=== PATIENT | male | born 1955 | race Caucasian/White ===

== ENCOUNTER 2020-07-24 11:00 | Emergency (ER) | payer OTHER ==
[~2020-07-24] VITALS: Ht 175.3 cm; Wt 100.0 kg
[2020-07-24] MEDS ORDERED: IV NORMAL SALINE 1000ML BAG 1,000 ML IV ONE (11:30)
--- NOTE | 2020-07-24 11:34 | PHYS DOC ---
General Adult EDM: Chief Complaint: MECHANICAL FALL HPI: HPI: Arnie is a 65-year-old white male who presents post fall via [facility]. Patient had an unwitnessed fall, and was found down earlier today. He has no acute complaints or pain. However he was sent here for further evaluation. Patient has a past medical history of diagnosed Alzheimer's dementia this complicated his physical exam and history. Patient was hallucinating about his apparently during interview. Review of Systems: Review of Systems: Constitutional: Denies fever or chills Eyes: Denies redness or eye pain HENT: Denies nasal congestion or sore throat Respiratory: Denies cough or shortness of breath Cardiovascular: Denies chest pain or palpitations GI: Denies abdominal pain, nausea, or vomiting : Denies dysuria or hematuria Musculoskeletal: Denies back pain or joint pain Integument: Denies rash or skin lesions Neurologic: Denies headache, focal weakness or sensory changes Complete systems were reviewed and found to be within normal limits, except as documented in this note. Current Medications: Home meds: Acetaminophen 325 mg x 2 every 4 hours as needed, donepezil 10 mg p.o. daily at night, aspirin 81 mg p.o. daily, amantadine 10 mg twice daily, tra zodone 50 mg p.o. daily at night. Vitamin B complex 1 tablet p.o. daily. Physical Exam: PE: Constitutional: Well developed, well nourished, no acute distress, non-toxic appearance HENT: Normocephalic, atraumatic. Cranial nerves II through XII grossly intact bilaterally. Eyes: PERRL, EOMI, conjunctiva normal, no discharge. Neck: Normal range of motion, no tenderness, supple. Lungs & Thorax: Bilateral breath sounds clear to auscultation, no wheezing Heart: 1+ diastolic murmur best heard at left upper sternal border. Regular rate and rhythm. S1 and S2 heard. S3 and S4 not heard. Abdomen: Soft, no tenderness. Protuberant, full abdomen. Bowel sounds present in all 4 quadrants. No masses palpated. Skin: Warm, dry, no erythema, no rash. 2 large 5 inch x 2 inch bruises on bilateral lower abdomen Of medium age. Back: No tenderness, no CVA tenderness Extremities: No tenderness, ROM intact, no edema 2+4 pulses all 4 extremities. Neurologic: Noted pill-rolling tremor in right upper extremity normal motor function, normal sensory function, no focal deficits noted 2+/4 DTRs all 4 extr emities. Psychologic: Patient appeared to be hallucinating in the room about his . He experienced exceptionally emotional episodes. Patient is not alert or oriented. Apparent dementia. This is reported to be the patient's baseline. EKG: EKG: @1253 NSR at 90bpm, QRS 92ms, QT/QTc 364/449ms Radiology/Procedures: Radiology/Procedures: PROCEDURE: CT HEAD AND CERVICAL SPINE WO CT head without contrast. CT cervical spine without contrast. PQRS statement: CT scans at this facility use dose reduction including either automated exposure control, iterative reconstructions, and /or weight based radiation dosing via mA and kV modification when appropriate to reduce radiation dose to as low as reasonably achievable. HISTORY: Fall, altered mental status, pain. CT head findings: There is motion artifact at the vertex with the patient moving on the table during the exam which excludes imaging a portion of the brain at the vertex as well as of the calvarium and scalp. The imaged portions of the brain demonstrate no intracranial hemorrhage, mass, hydrocephalus or infarction. Mild generalized brain atrophy is present. Imaged orbits, mastoids and bones are unremarkable. IMPRESSION: Extensive motion artifact at the vertex does not allow assessment of a portion of the head and segments of the frontal and parietal lobes at the vertex. The visualized and imaged segments of the head and brain demonstrates no acute abnormality. If there is clinical concern for an acute intracranial injury follow-up imaging when the patient is able to better cooperate or when sedated may be of benefit. CT cervical spine findings: Exam is motion degraded decreasing sensitivity to detect subtle abnormalities including small nondisplaced hairline fractures of the cervical spine. In light of this no fracture of the cervical spine is evident. Craniocervical junction intact. Cervical vertebral body height and alignment intact. Cervical disc osteophytes and uncovertebral spurs and facet spurring with spinal canal and neural foraminal stenoses. Lung apices and paraspinal tissues are unremarkable. IMPRESSION: Motion degraded exam. No acute osseous injury evident. Please see above. Electronically signed by: Casa Harrison MD (07/24/2020 12:55 PM) [id number] PROCEDURE: PORTABLE CHEST 1V PORTABLE CHEST 1V 07/24/2020 11:18 AM INDICATION: Weakness COMPARISON: None available TECHNIQUE: Portable frontal view of the chest is provided. FINDINGS: The cardiomediastinal silhouette is within normal limits. Lungs are clear. There are no significant pleural effusions. There is no pulmonary vascular congestion. No pneumothorax. No suspicious osseous abnormality. IMPRESSION: There is no acute cardiopulmonary process. Electronically signed by: Princess Dacosta MD (07/24/2020 11:47 AM) [facility] Course & Med Decision Making: Course & Med Decision Making 65-year-old white male presents 4 hours post fall, unwitnessed and dementia complicating history collection. Differential diagnoses: Frontotemporal dementia/pick's disease, parkinsonian dementia. Pill-rolling tremor and physical exam are most consistent with a parkinsonian dementia possibly frontotemporal dementia being the source of his hallucinations and personality changes. Will obtain CT head and neck to rule out subdural hematoma. Patient does not appear to have any focal neurological deficits, if CT negative discharge patient home. Nahun Disclaimer: Nahun Disclaimer: This electronic medical record was generated, in whole or in part, using a voice recognition dictation system. Departure Departure Impression: Primary Impression: Fall Qualified Codes: W19.XXXA - Unspecified fall, initial encounter Disposition: 01 HOME, SELF-CARE (back to prison) Condition: STABLE Patient Instructions: Fall Prevention in Hospitals Justicifation of Admission Dx: Justifications for Admission: Justification of Admission Dx: N/A GALILEA BARRY DO Jul 24, 2020 11:34
[2020-07-24 11:41] LABS: BASO # 0.1 x10^3/uL (0.0-0.2); BASO % 1 % (0-3); EOS # 0.1 x10^3/uL (0.0-0.7); EOS % 2 % (0-3); HEMATOCRIT 46.7 % (39.0-53.0); LYMPH % 13 % (24-48); MEAN CORPUSCULAR HEMOGLOBIN 29 pg (25-35); MEAN CORPUSCULAR HGB CONC 34 g/dL (31-37); MEAN CORPUSCULAR VOLUME 84 fL (79-100); MONO % 13 % (0-9); NEUT # 5.7 x10^3/uL (1.8-7.7); NEUT % 72 % (31-73); PLATELET COUNT 219 x10^3/uL (140-400); RED BLOOD COUNT 5.58 x10^6/uL (4.30-5.70); RED CELL DISTRIBUTION WIDTH 13.6 % (11.5-14.5); WHITE BLOOD COUNT 7.9 x10^3/uL (4.0-11.0)
[2020-07-24 11:50] LABS: PROTHROMBIN TIME PATIENT 13.8 SEC (11.7-14.0)
--- NOTE | 2020-07-24 11:50 | RAD ---
PORTABLE CHEST 1V 07/24/2020 11:18 AM INDICATION: Weakness COMPARISON: None available TECHNIQUE: Portable frontal view of the chest is provided. FINDINGS: The cardiomediastinal silhouette is within normal limits. Lungs are clear. There are no significant pleural effusions. There is no pulmonary vascular congestion. No pneumothorax. No suspicious osseous abnormality. IMPRESSION: There is no acute cardiopulmonary process. Electronically signed by: Princess Dacosta MD (07/24/2020 11:47 AM) TIMMY
[2020-07-24 11:54] LABS: CALCIUM 8.9 mg/dL (8.5-10.1); CREATININE 1.2 mg/dL (0.7-1.3)
[2020-07-24 12:00] LABS: ALBUMIN 3.6 g/dL (3.4-5.0); MAGNESIUM 2.4 mg/dL (1.8-2.4); TOTAL BILIRUBIN 0.8 mg/dL (0.2-1.0); TOTAL PROTEIN 7.2 g/dL (6.4-8.2)
[2020-07-24 12:03] LABS: POTASSIUM 3.8 mmol/L (3.5-5.1)
--- NOTE | 2020-07-24 12:57 | RAD ---
CT head without contrast. CT cervical spine without contrast. PQRS statement: CT scans at this facility use dose reduction including either automated exposure control, iterative reconstructions, and /or weight based radiation dosing via mA and kV modification when appropriate to reduce radiation dose to as low as reasonably achievable. HISTORY: Fall, altered mental status, pain. CT head findings: There is motion artifact at the vertex with the patient moving on the table during the exam which excludes imaging a portion of the brain at the vertex as well as of the calvarium and scalp. The imaged portions of the brain demonstrate no intracranial hemorrhage, mass, hydrocephalus or infarction. Mild generalized brain atrophy is present. Imaged orbits, mastoids and bones are unremarkable. IMPRESSION: Extensive motion artifact at the vertex does not allow assessment of a portion of the head and segments of the frontal and parietal lobes at the vertex. The visualized and imaged segments of the head and brain demonstrates no acute abnormality. If there is clinical concern for an acute intracranial injury follow-up imaging when the patient is able to better cooperate or when sedated may be of benefit. CT cervical spine findings: Exam is motion degraded decreasing sensitivity to detect subtle abnormalities including small nondisplaced hairline fractures of the cervical spine. In light of this no fracture of the cervical spine is evident. Craniocervical junction intact. Cervical vertebral body height and alignment intact. Cervical disc osteophytes and uncovertebral spurs and facet spurring with spinal canal and neural foraminal stenoses. Lung apices and paraspinal tissues are unremarkable. IMPRESSION: Motion degraded exam. No acute osseous injury evident. Please see above. Electronically signed by: Casa Harrison MD (07/24/2020 12:55 PM) [id number]
--- NOTE | 2020-07-24 13:17 | EKG ---
[facility] [address] [place] [address] Test Date: 2020-07-24 Test Time: 12:53:07 Pat Name: TIFFANY ANGUIANO Department: Room: Gender: M [employer] Operator: : 1955 Requested By: GALILEA BARRY Order Number: [id number] Reading MD: Measurements Intervals [place] Rate: 90 P: -13 UT: 182 QRS: 54 QRSD: 92 T: 51 QT: 364 QTc: 449 Interpretive Statements SINUS RHYTHM NO SPECIFIC ECG ABNORMALITIES RI6.02 No previous ECG available for comparison
[2020-07-24 14:03] LABS: BILIRUBIN,URINE SMALL (NEG); CLARITY,URINE CLEAR; COLOR,URINE YELLOW; NITRITE,URINE NEGATIVE (NEG); PH,URINE 5.5 (<5.0-8.0); PROTEIN,URINE 30 mg/dL (NEG-TRACE)
[2020-07-24 14:16] LABS: BACTERIA,URINE FEW /HPF (0-FEW); RBC,URINE 0 /HPF (0-2); SQUAMOUS EPITHELIAL CELL,UR FEW /LPF; WBC,URINE 0 /HPF (0-4)
[2020-07-24 15:45] VITALS: BP 144/117
== END 2020-07-24 17:00 | disposition home or self-care (01) ==
LOC: ER 11:00
DX: R44.3 Hallucinations, unspecified (principal); G89.11 Acute pain due to trauma; R07.89 Other chest pain; W18.39XA Other fall on same level, initial encounter; Y93.89 Activity, other specified; Y92.89 Other specified places as the place of occurrence of the external cause; Y99.8 Other external cause status
CPT/HCPCS: 36415; 70450; 71045; 72125; 80053; 81001; 82553; 83735; 84484; 85025; 85610; 85730; 93005; 96360; 99285; J7030

== ENCOUNTER 2020-11-16 07:32 | Emergency (ER) | payer MEDICARE, OTHER ==
[~2020-11-16] VITALS: Ht 182.9 cm; Wt 113.0 kg
--- NOTE | 2020-11-16 08:05 | PHYS DOC ---
Past Medical History Past Medical History: Anemia, Anxiety, Dementia Additional Past Medical Histor: AMNESIA Past Surgical History: Other Additional Past Surgical Histo: UNKNOWN Smoking Status: Never Smoker Alcohol Use: None Drug Use: None General Adult EDM: Chief Complaint: ALTERED MENTAL STATUS HPI: HPI: 65-year-old male past medical history significant for Alzheimer's dementia, posiitve for covid 19 ten days ago (since then has had a negative covid test), WARREN, severe malnutrition, and anxiety, presents to the ED brought in from [facility] with concern for weakness and decreased appetite. Unable to obtain history from patient due to dementia. Medication list reviewed and is not on any anticoagulants or antibiotics. Review of Systems: Review of Systems: Review of systems unobtainable due to patient's dementia Heart Score: Risk Factors: Risk Factors: DM, Current or recent (<one month) smoker, HTN, HLP, family history of CAD, obesity. Risk Scores: Score 0 - 3: 2.5% MACE over next 6 weeks - Discharge Home Score 4 - 6: 20.3% MACE over next 6 weeks - Admit for Clinical Observation Score 7 - 10: 72.7% MACE over next 6 weeks - Early Invasive Strategies Allergies: Allergies: Allergies Coded Allergies Type Severity Reaction Last Updated Verified No Known Drug Allergies 07/24/20 No Physical Exam: PE: Constitutional: GCS8 (E1M5V2), afebrile HENT: Normocephalic, atraumatic, Eyes: EOMI, conjunctiva normal, no discharge. Neck: Normal range of motion, supple, Cardiovascular: S1/2 present, regular rhythm, tachycardic on arrival in 110s Lungs & Thorax: Speaking in full sentences, bilateral equal chest rise, no tachypnea or increased work of breathing Abdomen: soft, no tenderness, obese, Skin: Warm, dry, no erythema, no rash. [] : uncircumsized w/buried penis, Extremities: No cyanosis or edema Neurologic: Alert, moves all four extremities, does not follow commands, incomprehensible speech, responds to pain (groans and swats you away) Psychologic: resting comfortably, EKG: EKG: Sinus tachycardia at 105 bpm, no axis deviation, QTC 488, poor baseline EKG but no obvious T wave inversions, ST elevations or ST depressions Radiology/Procedures: Radiology/Procedures: IMAGING REPORT Signed PATIENT: TIFFANY ANGUIANO ACCOUNT: [id number] : 1955 LOCATION: ER AGE: 65 SEX: M EXAM STATUS: REG ER ORD. PHYSICIAN: BERNADETTE MOYER DO REASON: soa, elevated d-dimer, h/o covid, PROCEDURE: CT ANGIOGRAPHY CHEST CTA CHEST INDICATION: soa, elevated d-dimer, h/o covid Comparison: Radiograph 11/16/2020. TECHNIQUE: Following the uneventful administration of intravenous contrast, 100 cc Omnipaque 350, axial CT sections were obtained through the lungs and upper abdomen. Multiplanar reconstructions and MIP images were obtained. PQRS compliance statement: One or more of the following individualized dose reduction techniques were utilized for this examination: 1. Automated exposure control 2. Adjustment of the mA and/or kV according to patient size 3. Use of iterative reconstruction technique FINDINGS: Pulmonary arteries: Lungs and Airways: No pulmonary mass or consolidation. No abnormality of the central airways. Pleura: The pleural spaces are normal. Heart and Mediastinum: The visualized thyroid is normal in size and attenuation. No axillary or supraclavicular lymphadenopathy. No mediastinal, hilar or retrocrural lymphadenopathy. Normal cardiac size. Coronary artery atherosclerotic disease. Trace anterior pericardial fluid. Normal caliber thoracic aorta. Abdomen: Limited images through the upper abdomen show no abnormality of the visualized organs. Bones and Soft Tissues: Degenerative changes of the spine with multilevel bridging osteophytes. IMPRESSION: 1. No evidence of pulmonary thromboembolic disease. 2. No pulmonary mass or consolidation. Electronically signed by: Felipe Hernandez MD (11/16/2020 12:30 PM) [id number] DICTATED and SIGNED BY: FELIPE HERNANDEZ MD DATE: 11/16/20 [id number] 0 Course & Med Decision Making: Course & Med Decision Making Pertinent Labs and Imaging studies reviewed. (See chart for details) Altered mental status, suspect multifactorial-do suspect patient may have another UTI given patient's heart rate but does not meet any signs of sepsis, has no fever or leukocytosis. I also suspect delirium from starting trazodone combined with underlying dementia. [id number] at bedside (is DPOA) who is concerned for more of a rapidly progressive dementia given that patient was ambulatory and verbal weeks ago. Pt is now bedbound and only responsive to pain which is not his normal baseline. CT head w/no acute process. CTA chest w/no PE, mass or consolidation. Labs with transaminitis and elevated tbili. U/A attempted - daughter in law declines.I offered admission to [facility] for neurology and psychiatric evaluations-to continue altered mental status work-up. Daughter is requesting patient be transferred to [facility]-most of patient's care has been there. Patient accepted by Dr. Zoila Rueda. Pt stable at time of transfer. I did speak with Dr. Rueda about patient's prior admission for Covid, UTI, sepsis and leukopenia. At that time AST/ALT were 70/91 and Tbili was 1.2 -patient does have worsening transaminitis. Would likely benefit from further imaging. Tylenol/salicylate negative. DPOA that transfer is per DPOAs' request, that [facility] has ability to provide same level of care. Nahun Disclaimer: Nahun Disclaimer: This electronic medical record was generated, in whole or in part, using a voice recognition dictation system. Departure Departure Impression: Primary Impression: AMS (altered mental status) Additional Impression: Transaminitis Disposition: DC/TRF OTHER TYPE INSTITUTI ([facility], Dr. Zoila Rueda) Condition: STABLE Referrals: NON,STAFF (PCP) BERNADETTE MOYER DO Nov 16, 2020 08:05
[2020-11-16 08:21] LABS: BASO % 1 % (0-3); EOS % 0 % (0-3); HEMATOCRIT 49.5 % (39.0-53.0); HEMOGLOBIN 17.3 g/dL (13.0-17.5); LYMPH % 14 % (24-48); MEAN CORPUSCULAR HEMOGLOBIN 29 pg (25-35); MEAN CORPUSCULAR HGB CONC 35 g/dL (31-37); MEAN CORPUSCULAR VOLUME 83 fL (79-100); MONO # 0.9 x10^3/uL (0.0-1.1); MONO % 13 % (0-9); NEUT # 5.5 x10^3/uL (1.8-7.7); NEUT % 73 % (31-73); PLATELET COUNT 284 x10^3/uL (140-400); RED BLOOD COUNT 5.94 x10^6/uL (4.30-5.70); RED CELL DISTRIBUTION WIDTH 14.1 % (11.5-14.5); WHITE BLOOD COUNT 7.5 x10^3/uL (4.0-11.0)
--- NOTE | 2020-11-16 08:30 | RAD ---
EXAM: XR CHEST 1V 11/16/2020 8:03 AM CLINICAL INDICATION: Weakness COMPARISON: Chest radiograph 07/24/2020 TECHNIQUE: AP upright view of the chest FINDINGS: The heart and mediastinum are normal. Lungs are clear. No pleural effusion or pneumothorax . No acute osseous abnormality. IMPRESSION: No acute cardiopulmonary abnormality. Electronically signed by: Kiesha Reese MD (11/16/2020 8:28 AM) [id number]
[2020-11-16 08:37] LABS: GFR 75.2
[2020-11-16 08:44] LABS: ALBUMIN 3.7 g/dL (3.4-5.0); DIRECT BILIRUBIN 0.5 mg/dL (0.0-0.2); MAGNESIUM 2.6 mg/dL (1.8-2.4); TOTAL BILIRUBIN 1.8 mg/dL (0.2-1.0); TOTAL PROTEIN 7.4 g/dL (6.4-8.2)
[2020-11-16] MEDS ORDERED: IV NORMAL SALINE 1000ML BAG 1,000 ML IV ONE (09:00)
--- NOTE | 2020-11-16 09:15 | RAD ---
CT HEAD/BRAIN WO History: Reason: weakness Comparison: July 24, 2020 Technique: Noncontrast CT imaging was performed of the head. Exposure: One or more of the following individualized dose reduction techniques were utilized for thi s examination: 1. Automated exposure control 2. Adjustment of the mA and/or kV according to patient size 3. Use of iterative reconstruction technique. Findings: No intracranial hemorrhage. No mass effect. No hydrocephalus. Mild brain parenchymal volume loss. Mild foci of decreased attenuation within hemispheric white matte r, most often due to chronic microvascular ischemia. Bilateral anterior inferior frontal hypoattenuat ion, may relate to insufflation from prior trauma, unchanged. Imaged orbits are unremarkable. Imaged paranasal sinuses and mastoid air cells are clear. No acute ca lvarial fracture. Impression: 1. No acute intracranial abnormality. Electronically signed by: Adal Pack DO (11/16/2020 9:12 AM) [id number]
[2020-11-16] MEDS ORDERED: IOHEXOL 350 MG/ML 100 ML VIAL. IV ONE (11:15)
[2020-11-16] MEDS ORDERED: HALOPERIDOL LACTATE 5 MG/ML VIAL. ONE (12:03)
[2020-11-16 12:13] VITALS: BP 145/71
[2020-11-16] MEDS ORDERED: HALOPERIDOL LACTATE 5 MG/ML VIAL. IVP ONE (12:15)
--- NOTE | 2020-11-16 12:31 | EKG ---
[facility] [address] [place] [address] Test Date: 2020-11-16 Test Time: 07:44:05 Pat Name: TIFFANY ANGUIANO Department: Room: Gender: [employer] Bagger: : 1955 Requested By: BERNADETTE OMYER Order Number: [id number] Reading MD: Measurements Intervals [place] Rate: 105 P: 24 MS: 166 QRS: 49 QRSD: 82 T: 31 QT: 366 QTc: 488 Interpretive Statements SINUS TACHYCARDIA NO SPECIFIC ECG ABNORMALITIES RI6.02 No previous ECG available for comparison
--- NOTE | 2020-11-16 12:32 | RAD ---
CTA CHEST INDICATION: soa, elevated d-dimer, h/o covid Comparison: Radiograph 11/16/2020. TECHNIQUE: Following the uneventful administration of intravenous contrast, 100 cc Omnipaque 350, axi al CT sections were obtained through the lungs and upper abdomen. Multiplanar reconstructions and MIP images were obtained. PQRS compliance statement: One or more of the following individualized dose reduction techniques were utilized for this examinat ion: 1. Automated exposure control 2. Adjustment of the mA and/or kV according to patient size 3. Use of iterative reconstruction technique FINDINGS: Pulmonary arteries: Lungs and Airways: No pulmonary mass or consolidation. No abnormality of the central airways. Pleura: The pleural spaces are normal. Heart and Mediastinum: The visualized thyroid is normal in size and attenuation. No axillary or supra clavicular lymphadenopathy. No mediastinal, hilar or retrocrural lymphadenopathy. Normal cardiac size . Coronary artery atherosclerotic disease. Trace anterior pericardial fluid. Normal caliber thoracic aorta. Abdomen: Limited images through the upper abdomen show no abnormality of the visualized organs. Bones and Soft Tissues: Degenerative changes of the spine with multilevel bridging osteophytes. IMPRESSION: 1. No evidence of pulmonary thromboembolic disease. 2. No pulmonary mass or consolidation. Electronically signed by: Brody Hernandez MD (11/16/2020 12:30 PM) [id number]
[2020-11-16 13:04] LABS: ACETAMIN < 2 mcg/ml (10-30); SALIC < 2.8 mg/dL (2.8-20.0)
== END 2020-11-16 14:28 | disposition short-term general hospital (02) ==
LOC: ER 07:32
DX: R41.82 Altered mental status, unspecified (principal); R74.01 Elevation of levels of liver transaminase levels; G30.9 Alzheimer's disease, unspecified; F02.80 Dementia in other diseases classified elsewhere, unspecified severity, without behavioral disturbance, psychotic disturbance, mood disturbance, and anxiety; F41.9 Anxiety disorder, unspecified; R00.0 Tachycardia, unspecified
CPT/HCPCS: 36415; 70450; 71045; 71275; 80048; 80076; 80329; 83605; 83690; 83735; 83880; 84484; 85025; 85379; 87040; 93005; 96361; 96374; 99285; G0480; J1630; J7030; Q9967